=== PATIENT | female | born 1965 | race Two or more races ===

== ENCOUNTER → 2017-04-17 | Day surgery (SDC) | payer BC ==
[~2017-04-17] MED LIST: ASPI-630 PO; CHOL2000 PO; CYAN10005 PO; FISH1CAP PO; HYDROmorphone 2 MG/ML VIAL IV PRN; IV RINGERS,LACTATED 1000ML 1,000 ML IV SCH; LEVO100T5 PO; LIDOCAINE 1% 1 ML SYRINGE. ID PRN; LIDOCAINE 2% PF Vial for OR 5 ML VIAL. ONE; MORPHINE SULFATE 4 MG/ML DISP.SYRIN. IV PRN; OMEP20CA9 PO; ONDANSETRON PF 4 MG/2 ML VIAL. IV PRN; PHEN37.53 PO; PRAS25CA PO; PROCHLORPERAZINE 10 MG/2 ML VIAL. IV PRN; PROPOFOL 0 ML IV ONE; PROPOFOL 40 ML IV ONE; THYR30TA PO; VITA40TA PO; fentaNYL PF VIAL 100 MCG/2 ML VIAL IV PRN
--- NOTE | 2017-04-17 08:15 | CONS ---
DATE OF CONSULTATION: 04/17/2017 REASON FOR CONSULTATION: Increasing reflux with maternal history of gastric cancer, history of colonic polyps. HISTORY OF PRESENT ILLNESS: This is a 51-year-old female with past medical history significant for diverticulosis, colonic polyps, GERD as well as per pernicious anemia, is seen for surveillance colon exam. Last colonoscopy was approximately 3 years ago, which did reveal a tubular adenoma. Surveillance exam is recommended at this time with a family history of colon polyps and her personal history of polyps. In addition, she had increased reflux despite being on omeprazole 20 mg daily. No dysphagia or odynophagia is encountered. She does avoid alcohol, nicotine and caffeine. With continued symptoms, she requests additional evaluation. PAST MEDICAL HISTORY: Colonic polyps, diverticulosis, LOWRY, reflux. ALLERGIES: LATEX. MEDICATIONS: Include aspirin, vitamin D, vitamin B12, fish oil, omeprazole, phentermine, DHEA, and vitamin K2. FAMILY HISTORY: Multiple family members with hypertension, colon cancer with his paternal grandmother and father, cerebrovascular accident in sibling, breast cancer and diabetes in mother, esophageal stomach cancer in mother. SOCIAL HISTORY: Never smoker. She is a social drinker. PAST SURGICAL HISTORY: Status post cholecystectomy, , tubal ligation, hysterectomy. REVIEW OF SYSTEMS: Per records. PHYSICAL EXAMINATION: GENERAL: Reveals a well-nourished, well-developed female who is alert, cooperative, in no acute distress. VITAL SIGNS: Temp 97.3, pulse 81, respiratory rate is 18. HEENT: Reveals normocephalic, atraumatic head. Pupils and extraocular muscles not tested. Sclerae anicteric. NECK: Supple. LUNGS: Clear. CARDIOVASCULAR: Reveals S1, S2 without S3, S4 or appreciable murmur. ABDOMEN: Reveals soft abdomen, normal bowel sounds, without appreciable hepatosplenomegaly. EXTREMITIES: Reveals no cyanosis, clubbing or edema. IMPRESSION: 1. Reflux with breakthrough symptoms. Differential includes Willett's, gastroesophageal reflux disease, gastroparesis, peptic ulcer disease and malignancy; therefore, upper endoscopy is recommended. 2. History of colonic polyps with a family history of colon cancer. Surveillance exam is warranted at this time. Risks and benefits have been discussed with the patient including risk of hemorrhage, perforation ____. She is willing to proceed. NATALIE OROZCO MD DR: IZABEL/som JOB#: [id number] / [id number]
[2017-04-17 08:16] VITALS: BP 110/72
--- NOTE | 2017-04-20 13:37 | PATHOLOGY ---
PATHOLOGY REPORT * * * * * * * * FINAL DIAGNOSIS: Esophageal biopsies, distal esophagus: - Segments of mildly hyperplastic squamous esophageal mucosa consistent with reflux esophagitis. (JPM:doe; 04/20/2017) COMMENT: Sections of the distal esophageal biopsy reveal segments of focally tangentially oriented, mildly hyperplastic squamous esophageal mucosa. The findings are consistent with reflux esophagitis. There is no evidence of Willett's change, dysplasia or malignancy. (JPM:doe; 04/20/2017) REPORT ELECTRONICALLY SIGNED BY: Amadou Quintana M.D. DATE/TIME: 04/20/2017 13:36 * * * * * * * * GROSS PATHOLOGY: Received in formalin labeled "Shawna Wahl," are multiple segments of christina soft tissue measuring from less than 0.1 up to 0.3 cm in maximum dimension. The specimen is submitted entirely in cassette A1. (JPM; 04/17/17) INITIAL CPT CODE(S): A; 87480 Professional services performed by [facility] [place] [address] Technical services performed by [facility] at [address] [place] [address] [address] [address]. SPECIMEN(S) RECEIVED: A.Distal esophagus biopsy CLINICAL HISTORY: GERD, history of colon cancer PATIENT: ABBIE WAHL /AGE: 311/24/1965 (Age: 51) PATIENT #: [id number] ALT CASE #: SPECIMEN COLLECTION DATE: 04/17/2017 SPECIMEN RECEIVED DATE: 04/17/2017 [facility] - [address] [place] [address] - PHONE: [phone] * * * END OF REPORT * * *
== END | disposition home or self-care (01) ==
LOC: ENDOS 06:21
PROVIDERS: ATTEND Internal Medicine Gastroenterology
DX: Z09 Encounter for follow-up examination after completed treatment for conditions other than malignant neoplasm (principal); Z86.010 Personal history of colon polyps; K64.0 First degree hemorrhoids; K57.30 Diverticulosis of large intestine without perforation or abscess without bleeding; K21.9 Gastro-esophageal reflux disease without esophagitis; E03.9 Hypothyroidism, unspecified; Z90.49 Acquired absence of other specified parts of digestive tract; Z98.51 Tubal ligation status; Z87.39 Personal history of other diseases of the musculoskeletal system and connective tissue; Z90.710 Acquired absence of both cervix and uterus; Z86.39 Personal history of other endocrine, nutritional and metabolic disease; Z91.040 Latex allergy status; Z91.048 Other nonmedicinal substance allergy status
CPT/HCPCS: 45378; 88305; J2704; J2001

== ENCOUNTER 2018-12-03 17:15 | Emergency (ER) | payer BC ==
[~2018-12-03] VITALS: Ht 170.2 cm; Wt 89.4 kg
[~2018-12-03 17:15] MED LIST changes: -HYDROmorphone 2 MG/ML VIAL IV PRN; -IV RINGERS,LACTATED 1000ML 1,000 ML IV SCH; -LIDOCAINE 1% 1 ML SYRINGE. ID PRN; -LIDOCAINE 2% PF Vial for OR 5 ML VIAL. ONE; -MORPHINE SULFATE 4 MG/ML DISP.SYRIN. IV PRN; +OMEP20CA10 PO; -OMEP20CA9 PO; -ONDANSETRON PF 4 MG/2 ML VIAL. IV PRN; -PROCHLORPERAZINE 10 MG/2 ML VIAL. IV PRN; -PROPOFOL 0 ML IV ONE; -PROPOFOL 40 ML IV ONE; -fentaNYL PF VIAL 100 MCG/2 ML VIAL IV PRN
[2018-12-03] MEDS ORDERED: IV NORMAL SALINE 1000ML BAG 1,000 ML IV SCH (18:28)
[2018-12-03] MEDS ORDERED: MORPHINE SULFATE 2 MG/ML VIAL. IV/SQ PRN (18:30)
[2018-12-03] MEDS ORDERED: ONDANSETRON PF 4 MG/2 ML VIAL. IV ONE (18:30)
--- NOTE | 2018-12-03 18:34 | PHYS DOC ---
Past Medical History Past Medical History: Hypothyroid, Other Additional Past Medical Histor: CHRONIC BACK Past Surgical History: , Other Additional Past Surgical Histo: BILAT. ANKLES AND TOES Alcohol Use: Occasionally Drug Use: None Adult General Chief Complaint Chief Complaint: ABDOMINAL PAIN HPI HPI Patient is a 53-year-old female who presents with complaint of abdominal cramping and diarrhea that started about 3 days ago. She states that pain is about an 8 out of 10 in her upper abdomen and right lower abdomen and states the pain radiates into her back. She states that prior to the symptoms she was having upper respiratory infection symptoms a couple of days prior and states that she was coughing a lot. She thinks that the coughing was what caused the pain in the upper abdomen. She denies having had any nausea or vomiting. She states that the diarrhea has been watery and states that it smells like baby poop. Patient states that symptoms are worsened if she tries to eat or drink anything. She states that she often has diarrhea up to 4 times per hour and states that she has had too many stools to count. Review of Systems Review of Systems Constitutional: Denies fever or chills [] Respiratory: Positive cough without shortness of breath [] Cardiovascular: No additional information not addressed in HPI [] GI: Positive abdominal pain/cramping with diarrhea [] Musculoskeletal: Positive back pain [] Neurologic: Positive headache without focal weakness or sensory changes [] All other systems were reviewed and found to be within normal limits, except as documented in this note. Current Medications Current Medications Current Medications Medications (Trade) Dose Ordered Sig/Oral Start Time Stop Time Status Last Admin Dose Admin Ciprofloxacin (Cipro) 500 mg 1X ONCE 12/03/18 20:30 12/03/18 20:31 DC Diphenoxylate HCl/ Atropine (Lomotil) 2 tab 1X ONCE 12/03/18 20:30 12/03/18 20:31 DC Info (CONTRAST GIVEN -- Rx MONITORING) 1 each PRN DAILY PRN 12/03/18 19:30 12/05/18 19:29 Iohexol (Omnipaque 300 Mg/ml) 75 ml 1X ONCE 12/03/18 19:30 12/03/18 19:31 DC 12/03/18 19:43 75 ML Metronidazole (Flagyl) 500 mg 1X ONCE 12/03/18 20:30 12/03/18 20:31 DC Morphine Sulfate (Morphine Sulfate) 2 mg PRN Q15MIN PRN 12/03/18 18:30 12/04/18 18:29 12/03/18 19:23 2 MG Ondansetron HCl (Zofran) 4 mg 1X ONCE 12/03/18 18:30 12/03/18 18:32 DC 12/03/18 19:21 4 MG Sodium Chloride 1,000 ml @ 1,000 mls/hr Q1H 12/03/18 18:28 12/03/18 19:27 DC 12/03/18 19:20 1,000 MLS/HR Allergies Allergies Allergies Coded Allergies Type Severity Reaction Last Updated Verified adhesive Allergy Intermediate Rash 04/17/17 Yes latex Allergy Intermediate Rash 04/17/17 Yes Physical Exam Physical Exam Constitutional: Well developed, well nourished, no acute distress, non-toxic appearance. [] HENT: Normocephalic, atraumatic, bilateral external ears normal, oropharynx moist, no oral exudates, nose normal. [] Eyes: PERRLA, EOMI, conjunctiva normal, no discharge. [] Neck: Normal range of motion, no tenderness, supple, no stridor. [] Cardiovascular:Heart rate regular rhythm, no murmur [] Lungs & Thorax: Bilateral breath sounds clear to auscultation [] Abdomen: Bowel sounds normal, soft, with upper abdominal tenderness. [] Skin: Warm, dry, no erythema, no rash. [] Extremities: No tenderness, no cyanosis, no clubbing, ROM intact, no edema. [] Neurologic: Alert and oriented X 3, no focal deficits noted. [] Current Patient Data Vital Signs Vital Signs Date Time Temp Pulse Resp B/P (MAP) Pulse Ox O2 Delivery O2 Flow Rate FiO2 12/03/18 19:23 16 99 Room Air 12/03/18 17:45 98.4 81 115/85 (95) 98.4 Lab Values Laboratory Tests Test 12/03/18 18:10 White Blood Count 6.5 x10^3/uL (4.0-11.0) Red Blood Count 5.19 x10^6/uL (3.50-5.40) Hemoglobin 15.4 g/dL (12.0-15.5) Hematocrit 45.6 % (36.0-47.0) Mean Corpuscular Volume 88 fL (79-100) Mean Corpuscular Hemoglobin 30 pg (25-35) Mean Corpuscular Hemoglobin Concent 34 g/dL (31-37) Red Cell Distribution Width 13.6 % (11.5-14.5) Platelet Count 215 x10^3/uL (140-400) Neutrophils (%) (Auto) 70 % (31-73) Lymphocytes (%) (Auto) 19 % (24-48) L Monocytes (%) (Auto) 9 % (0-9) Eosinophils (%) (Auto) 2 % (0-3) Basophils (%) (Auto) 0 % (0-3) Neutrophils # (Auto) 4.6 x10^3uL (1.8-7.7) Lymphocytes # (Auto) 1.2 x10^3/uL (1.0-4.8) Monocytes # (Auto) 0.6 x10^3/uL (0.0-1.1) Eosinophils # (Auto) 0.1 x10^3/uL (0.0-0.7) Basophils # (Auto) 0.0 x10^3/uL (0.0-0.2) Urine Collection Type Unknown Urine Color [place] Urine Clarity Clear Urine pH 6.0 Urine Specific [place] >=1.030 Urine Protein Negative mg/dL (NEG-TRACE) Urine Glucose (UA) Negative mg/dL (NEG) Urine Ketones (Stick) Trace mg/dL (NEG) Urine Blood Negative (NEG) Urine Nitrite Negative (NEG) Urine Bilirubin Small (NEG) Urine Urobilinogen Dipstick 0.2 mg/dL (0.2 mg/dL) Urine Leukocyte Esterase Small (NEG) Urine RBC 0 /HPF (0-2) Urine WBC 5-10 /HPF (0-4) Urine Squamous Epithelial Cells Few /LPF Urine Amorphous Sediment Present /HPF Urine Bacteria 0 /HPF (0-FEW) Urine Hyaline Casts Few /HPF Urine Mucus Marked /LPF Sodium Level 140 mmol/L (136-145) Potassium Level 3.8 mmol/L (3.5-5.1) Chloride Level 105 mmol/L (98-107) Carbon Dioxide Level 21 mmol/L (21-32) Anion Gap 14 (6-14) Blood Urea Nitrogen 13 mg/dL (7-20) Creatinine 0.9 mg/dL (0.6-1.0) Estimated GFR (Cockcroft-Gault) 65.5 BUN/Creatinine Ratio 14 (6-20) Glucose Level 89 mg/dL (70-99) Calcium Level 8.7 mg/dL (8.5-10.1) Total Bilirubin 0.3 mg/dL (0.2-1.0) Aspartate Amino Transferase (AST) 84 U/L (15-37) H Alanine Aminotransferase (ALT) 79 U/L (14-59) H Alkaline Phosphatase 125 U/L (46-116) H Total Protein 7.5 g/dL (6.4-8.2) Albumin 3.7 g/dL (3.4-5.0) Albumin/Globulin Ratio 1.0 (1.0-1.7) Lipase 173 U/L (73-393) Laboratory Tests 12/03/18 18:10 Laboratory Tests 12/03/18 18:10 EKG EKG [] Radiology/Procedures Radiology/Procedures [] Impressions: PROCEDURE: CT ABD PELV W/ IV CONTRST ONLY Examination: CT of the abdomen pelvis with IV contrast HISTORY: History of abdominal pain COMPARISON: 12/30/2005 TECHNIQUE: Axial CT images of the abdomen pelvis were performed with IV contrast. Coronal and sagittal reformatted performed Exposure: One or more of the following individualized dose reduction techniques were utilized for this examination: 1. Automated exposure control 2. Adjustment of the mA and/or kV according to patient size 3. Use of iterative reconstruction technique FINDINGS: Minimal bibasilar lung atelectasis. No evidence of free air identified in the abdomen. The visualized liver, adrenal, spleen, grossly appears unremarkable. The visualized pancreas grossly appears unremarkable. Prominent appearing common bile duct probably post cholecystectomy changes. The stomach is minimally distended. The small bowel is nondilated. The appendix is normal. Liquid stool identified in the colon. There is diffuse enhancement of the wall of the distal sigmoid colon/ rectum with minimal surrounding fat stranding. Urinary bladder is mildly distended. The bilateral kidneys enhance symmetrically. The caliber of the aorta grossly appears unremarkable. Mild degenerative changes lumbar spine IMPRESSION: 1. Enhancement of the wall of the distal sigmoid colon/rectum with surrounding inflammatory fat stranding likely colitis/proctitis. 2. Cholecystectomy changes. Electronically signed by: Oh French MD (12/03/2018 7:59 PM) [facility] Course & Med Decision Making Course & Med Decision Making Pertinent Labs and Imaging studies reviewed. (See chart for details) [] Dragon Disclaimer Dragon Disclaimer This electronic medical record was generated, in whole or in part, using a voice recognition dictation system. Departure Departure Impression: Primary Impression: Colitis Disposition: 01 HOME, SELF-CARE Condition: STABLE Referrals: PHOEBE MORENO (PCP) Patient Instructions: Colitis Scripts Diphenoxylate Hcl/Atropine (LOMOTIL TABLET) 1 Each Tablet 1 TAB PO TID PRN for DIARRHEA, #15 TAB Prov: ILIANA MIDDLETON Jr. DO 12/03/18 Ondansetron Hcl (ZOFRAN) 4 Mg Tablet 4 MG PO PRN TID PRN for NAUSEA/VOMITING, #15 nausea/vomiting Prov: ILIANA MIDDLETON Jr. DO 12/03/18 Hydrocodone/Apap 5-325 (NORCO 5-325 TABLET) 1 Each Tablet 1-2 EACH PO PRN Q6HRS PRN for PAIN, #15 as needed for pain Prov: ILIANA MIDDLETON Jr. DO 12/03/18 Metronidazole (FLAGYL) 500 Mg Tablet 500 MG PO TID, #30 TAB Prov: ILIANA MIDDLETON Jr. DO 12/03/18 Ciprofloxacin Hcl (CIPRO) 500 Mg Tablet 1 TAB PO BID, #20 TAB Prov: ILIANA MIDDLETON Jr. DO 12/03/18 ILIANA MIDDLETON Jr. DO Dec 03, 2018 18:34
[2018-12-03 18:39] LABS: BILIRUBIN,URINE SMALL (NEG); CLARITY,URINE CLEAR; COLOR,URINE AMBER; NITRITE,URINE NEGATIVE (NEG); PROTEIN,URINE NEGATIVE (NEG-TRACE); UROBILINOGEN,URINE 0.2 mg/dL (0.2 mg/dL)
[2018-12-03 18:40] LABS: BASO % 0 % (0-3); EOS # 0.1 x10^3/uL (0.0-0.7); EOS % 2 % (0-3); HEMATOCRIT 45.6 % (36.0-47.0); HEMOGLOBIN 15.4 g/dL (12.0-15.5); LYMPH # 1.2 x10^3/uL (1.0-4.8); LYMPH % 19 % (24-48); MEAN CORPUSCULAR HEMOGLOBIN 30 pg (25-35); MEAN CORPUSCULAR HGB CONC 34 g/dL (31-37); MEAN CORPUSCULAR VOLUME 88 fL (79-100); MONO # 0.6 x10^3/uL (0.0-1.1); MONO % 9 % (0-9); NEUT # 4.6 x10^3uL (1.8-7.7); NEUT % 70 % (31-73); PLATELET COUNT 215 x10^3/uL (140-400); RED BLOOD COUNT 5.19 x10^6/uL (3.50-5.40); RED CELL DISTRIBUTION WIDTH 13.6 % (11.5-14.5); WHITE BLOOD COUNT 6.5 x10^3/uL (4.0-11.0)
[2018-12-03 18:44] LABS: CALCIUM 8.7 mg/dL (8.5-10.1); CREATININE 0.9 mg/dL (0.6-1.0); GFR 65.5; POTASSIUM 3.8 mmol/L (3.5-5.1)
[2018-12-03 18:47] LABS: HYALINE CASTS, URINE FEW /HPF; SQUAMOUS EPITHELIAL CELL,UR FEW /LPF
[2018-12-03 18:48] LABS: AMORPHOUS SEDIMENT,UR PRESENT /HPF; BACTERIA,URINE 0 /HPF (0-FEW); RBC,URINE 0 /HPF (0-2)
[2018-12-03 18:51] LABS: ALBUMIN 3.7 g/dL (3.4-5.0); TOTAL BILIRUBIN 0.3 mg/dL (0.2-1.0); TOTAL PROTEIN 7.5 g/dL (6.4-8.2)
[2018-12-03] MEDS ORDERED: CONTRAST GIVEN. MC PRN (19:30)
[2018-12-03] MEDS ORDERED: IOHEXOL 300 MG/ML 100ML VIAL. IV ONE (19:30)
--- NOTE | 2018-12-03 20:02 | RAD ---
Examination: CT of the abdomen pelvis with IV contrast HISTORY: History of abdominal pain COMPARISON: 12/30/2005 TECHNIQUE: Axial CT images of the abdomen pelvis were performed with IV contrast. Coronal and sagittal reformatted performed Exposure: One or more of the following individualized dose reduction techniques were utilized for this examination: 1. Automated exposure control 2. Adjustment of the mA and/or kV according to patient size 3. Use of iterative reconstruction technique FINDINGS: Minimal bibasilar lung atelectasis. No evidence of free air identified in the abdomen. The visualized liver, adrenal, spleen, grossly appears unremarkable. The visualized pancreas grossly appears unremarkable. Prominent appearing common bile duct probably post cholecystectomy changes. The stomach is minimally distended. The small bowel is nondilated. The appendix is normal. Liquid stool identified in the colon. There is diffuse enhancement of the wall of the distal sigmoid colon/ rectum with minimal surrounding fat stranding. Urinary bladder is mildly distended. The bilateral kidneys enhance symmetrically. The caliber of the aorta grossly appears unremarkable. Mild degenerative changes lumbar spine IMPRESSION: 1. Enhancement of the wall of the distal sigmoid colon/rectum with surrounding inflammatory fat stranding likely colitis/proctitis. 2. Cholecystectomy changes. Electronically signed by: Oh French MD (12/03/2018 7:59 PM) [facility]
[2018-12-03] MEDS ORDERED: metroNIDAZOLE 500 MG TABLET PO ONE (20:30)
[2018-12-03] MEDS ORDERED: DIPHENOXYLATE/ATROPINE TABLET. PO ONE (20:30)
[2018-12-03] MEDS ORDERED: CIPROFLOXACIN HCL 250 MG TABLET. PO ONE (20:30)
[2018-12-03 20:50] VITALS: BP 122/79
[2018-12-03] MEDS ORDERED: HYDR-3164 PO (21:09)
[2018-12-03] MEDS ORDERED: DIPH1TAB PO (21:09)
[2018-12-03] MEDS ORDERED: CIPR500T94 PO (21:09)
[2018-12-03] MEDS ORDERED: ONDA4TAB7 PO (21:09)
[2018-12-03] MEDS ORDERED: METR500T PO (21:09)
== END 2018-12-03 21:24 | disposition home or self-care (01) ==
LOC: ER 17:15
DX: K52.89 Other specified noninfective gastroenteritis and colitis (principal); E03.9 Hypothyroidism, unspecified; R05 Cough; Z98.890 Other specified postprocedural states; Z88.8 Allergy status to other drugs, medicaments and biological substances; Z91.040 Latex allergy status
CPT/HCPCS: 36415; 74177; 80053; 81001; 83690; 85025; 87086; 87493; 96361; 96374; 96375; 99284; J2270; J2405; J7030; Q9967

== ENCOUNTER → 2018-12-30 | Outpatient (CLI) | payer BC ==
[2018-12-03 20:50] VITALS: BP 122/79
[~2018-12-30] MED LIST changes: +BARIUM SULFATE 60% 355 ML SUSP PO ONE; +CIPR500T94 PO; +DIPH1TAB PO; +HYDR-3164 PO; +METR500T PO; +ONDA4TAB7 PO
--- NOTE | 2018-12-30 10:54 | KCIC ---
SMALL BOWEL SERIES History: Right lower quadrant pain and diarrhea for about one month Comparison: CT exam December 03, 2018, no previous similar exam available Findings: Small bowel examination was performed. There is retained stool greater of the right colon. There is normal transit of contrast through the small bowel, seen in the ascending colon at about 100 minutes. Small bowel is not significantly dilated. No significant stricture was identified. There is segmental loss of definition of folds of the small bowel in the mid and right abdominal region. No discrete mucosal lesion was identified of the terminal ileum. Fluoroscopy time: 1 minute 7 seconds, 3 images Impression: 1. There is segmental loss of definition of small bowel folds in the mid and right abdominal region, could be seen with enteritis. Electronically signed by: Braulio Rashid MD (12/30/2018 10:51 AM) [facility]
== END | disposition home or self-care (01) ==
LOC: KCIC 08:08
PROVIDERS: ATTEND Internal Medicine Gastroenterology
DX: R10.31 Right lower quadrant pain (principal); R19.7 Diarrhea, unspecified
CPT/HCPCS: 74250

== ENCOUNTER → 2021-08-20 | Outpatient (CLI) | payer BC ==
[~2021-08-20] MED LIST changes: -BARIUM SULFATE 60% 355 ML SUSP PO ONE; +CYAN-25 PO; -CYAN10005 PO; -OMEP20CA10 PO; +OMEP20CA16 PO
--- NOTE | 2021-08-21 10:18 | CARD ---
MR#: [id number] Date of Study: 08/20/2021 Ordering Physician: AJ ALVARADO, Referring Physician: AJ ALVARADO, Tech: Donna Mari, CS APPROVED REPORT INDICATION Chest Pain RISK FACTORS Obesity Reason : Patient complained of pain PROCEDURE The patient underwent an Exercise Stress Test using the Den Protocol. Blood pressure, heart rate, a nd EKG were monitored. An Echocardiogram was performed by seed technician in four stages in quad fashion. At peak stress four se lected images were obtained and placed side by side with resting images for comparison. STRESS ECHO FINDINGS The resting Echocardiogram showed normal left ventricular systolic contractility with an estimated Ej ection Fraction of about 55 %. The Resting Echocardiogram showed normal augmentation of myocardial wall segments using a 16 segment model. The Stress Echocardiogram showed normal augmentation of myocardial wall segments using a 16 segment m cedric. The Stress Echocardiogram left ventricular systolic contractility has an estimated Ejection Fraction of about 65%. Test Type: Exercise Stress Nurse/Tech: Eneida Tovar RN Test Indications: Dyspnea Cardiac History and Allergies: see EMR, No known cardiac Medications: see EMR Medical History: see EMR Resting ECG: SR Resting Heart Rate: 77 bpm Resting Blood Pressure: 138/81mmHg Pretest Chest Pain: None Nurse/Tech Notes Lungs CTA. Heart tones normal. S1S2. Stress Symptoms No chest pain or symptoms. Test stopped once target heart rate reached. VS back to baseline by end of recovery period. POST EXERCISE Reason for Termination: Reached target heart rate Target HR: Yes Max HR: 169 bpm 102% of Maximum Predicted HR: 165 bpm Exercise duration: 6:32 min:sec, 3 Stage Exercise capacity: 7.0METs Max Blood Pressure: 168/90mmHg Blood Pressure response to exercise: Normal blood pressure response during stress. Heart Rate response to exercise: Normal response. Chest Pain: No. Arrhythmia: No. ST Change: No. INTERPRETATION Stress EKG Conclusion: The resting EKG showed a sinus rhythm with mild T wave inversion in V1 and aVR . The stress EKG showed no significant changes from baseline. No EKG evidence of stress-induced ischemia. <Conclusion> Good exercise tolerance with the patient walking for 6 minutes and 32 seconds on a Den protocol. No chest pain with exertion. No EKG evidence of stress-induced ischemia. Normal LV systolic function at rest. Normal LV response to exertion with no regional wall motion abnormalities. Low risk treadmill stress echo. Signed by : Jay Salguero MD Electronically Approved : 08/21/2021 10:17:41
== END ==
LOC: ECHO 12:47
PROVIDERS: ATTEND Internal Medicine Cardiovascular Disease
DX: R06.00 Dyspnea, unspecified (principal); R07.9 Chest pain, unspecified
CPT/HCPCS: 93017; 93350

== ENCOUNTER → 2021-10-18 | Outpatient (CLI) | payer BC ==
--- NOTE | 2021-10-18 10:27 | RAD ---
MR#: [id number] Date of Study: 10/18/2021 Ordering Physician: AJ ALVARADO, Referring Physician: AJ ALVARADO, Tech: Jennifer Cortez RDMS, RVT, RTR APPROVED REPORT Patient Location : OUT-PATIENT Indications Lower Extremity Edema : Bilateral Varicose Veins Greater Saphenous Veins (GSV) Significant venous relux noted in the RIGHT GSV at the following levels : Superficial Femoral Junctio n, Proximal Thigh, Mid Thigh, Distal Thigh, Proximal Calf, Mid Calf, Distal Calf Significant venous relux noted in the LEFT GSV at the following levels : Superficial Femoral Junction , Proximal Thigh, Mid Thigh, Distal Thigh, Proximal Calf, Mid Calf, Distal Calf Findings Limited grayscale images of the saphenofemoral junctions are grossly unremarkable. The right great saphenous vein measures 5.4 mm and has a maximum reflux time of 2.2 seconds. The left great saphenous vein measures a maximum of 8 mm and has a maximum reflux time of 2.5 seconds . Bilateral lesser saphenous veins do not reveal any evidence of reflux Critical Notification Critical Value: No <Conclusion> 1. Positive for reflux in the bilateral greater saphenous veins Signed by : Aj Alvarado, Electronically Approved : 10/18/2021 10:27:01
== END ==
LOC: US 08:40
PROVIDERS: ATTEND Internal Medicine Cardiovascular Disease
DX: I87.2 Venous insufficiency (chronic) (peripheral) (principal); I83.93 Asymptomatic varicose veins of bilateral lower extremities; R60.0 Localized edema
CPT/HCPCS: 93970